=== PATIENT | female | born 1970 | race African-American/Black ===

== ENCOUNTER → 2018-08-21 | Outpatient (CLI) | payer OTHER | LOC: BMCIMAGING 10:03 | PROVIDERS: ATTEND Internal Medicine | DX: B20 Human immunodeficiency virus [HIV] disease (principal); Z79.899 Other long term (current) drug therapy; Z13.820 Encounter for screening for osteoporosis; Z78.0 Asymptomatic menopausal state; E28.9 Ovarian dysfunction, unspecified ==